=== PATIENT | female | born 1945 | race Caucasian/White ===

== ENCOUNTER 2017-06-07 12:31 | Inpatient (IN) | payer MEDICARE ==
[~2017-06-07] VITALS: Ht 162.6 cm; Wt 72.4 kg
--- NOTE | 2017-06-07 12:38 | ED.REPORT ---
HPI-Trauma Minor / Fall Date of Service Jun 07, 2017 ED Provider: Uday De Los Santos MD Patient is a 72 year old female with a history of hypertension who presents to the ED via EMS after a ground level fall complaining of left hip pain. She complains of pain with movement. The fall was a mechanical fall, she tripped and fell. Patient denies hitting her head, losing consciousness, fever or other symptoms. Nursing Notes Stated Complaint: LEFT HIP PAIN Chief Complaint: Extremity Trauma Nursing Notes Reviewed: Yes Allergies: Coded Allergies: No Known Allergies (Unverified , 06/07/17) General Time Seen by MD: 12:32 Chief Complaint Fall Hx Obtained From: Patient Arrived By: Ambulance Onset Occurred: Just prior to arrival Symptom Duration: Since onset Caused by: Fall on ground Location: Hip left Quality: Painful Severity: Current: Moderate Similar Sx Previous: No Past Medical History Past Medical History Reports: Hyperlipidemia, Hypertension Smoking History Never Smoker Social History Alcohol Use: Denies alcohol use Drug Use: Denies drug use Other Social History: Good social support Ambulatory Status Independent Review of Systems Constitutional: Denies: Chills, Fever Respiratory: Denies: Non-productive cough, Shortness of breath Musculoskeletal: Reports: Extremity pain, Denies: Back pain, Neck pain Skin: Denies Itching, Denies Rash Neurologic: Reports: Problem walking, Denies: Change LOC, Headache, Numbness, Weakness Complete sys rev & neg: except as marked. Cardiovascular: Denies: Chest pain Physical Exam Initial Vital Signs Vital Signs (First) Date Time Temp Pulse Resp B/P Pulse Ox O2 Delivery O2 Flow Rate FiO2 06/07/17 12:43 35.0 86 18 123/60 97 Initial VS: Reviewed General/Constitutional: Awake, Alert Neck: Atraumatic, Supple, Full range of motion Head / Eyes: Atraumatic, Normocephalic, PERRL, EOMI Respiratory / Chest: Atraumatic, Breath sounds NL, Breath sounds = bilat, No respiratory distress Cardiovascular: Heart rate NL, Regular rhythm, Heart sounds NL Upper Extremity / MS: Atraumatic, Full range of motion Lower Extremity / Pelvis / MS: Neurologic intact, Vascular intact left leg externally rotated and shortened tender over the greater trochanter Skin: Atraumatic, Color NL, No rash, Warm, Dry Neurologic: Oriented X3, Speech NL Psychiatric: Affect NL, Mood NL Interpretation & Diagnostics Lab Results Interpretation Result Diagram: 06/07/17 1230 06/07/17 1230 Test 06/07/17 12:30 White Blood Count 7.1th/mm3 (3.8-10.1) Red Blood Count 4.29mil/mm3 (3.90-5.20) Hemoglobin 13.3g/dL (12.0-15.6) Hematocrit 40.3% (35.0-46.0) Mean Corpuscular Volume 93.9fL (81-100) Mean Corpuscular Hemoglobin 31.0pg (27.0-35.0) Mean Corpuscular Hemoglobin Concent 33.0% (32.0-37.0) Red Cell Distribution Width 12.6% (12.3-15.4) Platelet Count 301bil/L (150-400) Neutrophils (%) (Auto) 52.2% (40-74) Lymphocytes (%) (Auto) 37.1% (14-46) Monocytes (%) (Auto) 8.6% (4-12) Eosinophils (%) (Auto) 1.1% (0-5) Basophils (%) (Auto) 0.7% (0-3) Sodium Level 139mEq/L (134-144) Potassium Level 4.5mEq/L (3.5-5.2) Chloride Level 100mEq/L (97-108) Carbon Dioxide Level 22mmol/L (18-29) Blood Urea Nitrogen 16mg/dL (8-27) Creatinine 0.62mg/dL (0.57-1.00) Estimat Glomerular Filtration Rate 135mL/min (>59) Glucose Level 106mg/dL (60-99) Calcium Level 9.1mg/dL (8.5-10.1) Total Bilirubin 0.5mg/dL (0.0-1.2) Aspartate Amino Transf (AST/SGOT) 24U/L (0-50) Alanine Aminotransferase (ALT/SGPT) 15U/L (0-32) Alkaline Phosphatase 83U/L (25-165) Total Protein 6.7g/dL (6.4-8.4) Albumin 4.2g/dL (3.4-5.0) ECG Interpretation Time: 13:30 Interpreted by: ED physician Normal ECG Interpretation: Normal rate (81), Normal sinus rhythm X-Ray Chest Interpretation Chest Xray Interpretation: IMPRESSION: 1. No acute cardiopulmonary disease. Dictated by: Tom Balderas M.D. on 06/07/2017 at 13:51 Approved by: Tom Balderas M.D. on 06/07/2017 at 13:51 Interpretation / Wet Read by: Interpret - Radiologist X-Ray Interpretation Xray Interpretation: IMPRESSION: 1. Mildly impacted left femoral neck fracture. Dictated by: Tom Balderas M.D. on 06/07/2017 at 13:50 Approved by: Tom Balderas M.D. on 06/07/2017 at 13:51 X-Ray Ordered: Hip left Interpretation / Wet Read by: Interpret - Radiologist Re-Eval/Medical Decision Re-Evaluation/Progress : Time of Eval: 13:42 Re-Evaluation/Progress Note: Discussed X-ray results and plan for admit. Patient understands and agrees to plan. All questions were addressed. Consultation #1: Referral / Consult Name: Vikas Sánchez MD Consulted With: Surgeon Call Returned at: 13:34 Farm Service Adviser: Will see patient, Agrees with eval, Agrees with plan Consultation #2: Referral / Consult Name: Edwin Pham MD Consulted With: Hospitalist Call Returned at: 14:09 Farm Service Adviser: Agrees with eval, Agrees with plan, Accepts admit Counseled Regarding: Diagnosis, Lab results, Need for admission Discharge & Departure Impression: Primary Impression: Fracture of femoral neck, left Encounter type: initial encounter Fracture type: closed Qualified Code: S72.002A - Fracture of unspecified part of neck of left femur, initial encounter for closed fracture Disposition: ADMITTED TO HOSPITAL Discharge Condition All VS Reviewed: Yes Condition: Stable Scribe Attestation Portions of this note were transcribed by Anais Cole. I, Dr. De Los Santos personally performed the history, physical exam and medical decision-making; I reviewed and confirmed the accuracy of the information in the transcribed note. Signed by: Susan Moyer, 06/07/17 Uday De Los Santos MD Jun 07, 2017 12:38 Judit Cole Jun 07, 2017 12:43
[2017-06-07] MEDS ORDERED: HYDROmorphone 0.5 mg/0.5 mL iSecure Syringe IVPUSH PRN (12:40)
[2017-06-07] MEDS ORDERED: Ondansetron 2 mg/mL 2 mL Inj IV PRN (12:40)
[2017-06-07 12:43] VITALS: BP 123/60; PULSE 86; RESP 18; O2SAT 97
[2017-06-07 13:01] LABS: BASOPHILS % (AUTO) 0.7 % (0-3); EOSINOPHILS % (AUTO) 1.1 % (0-5); MONOCYTES % (AUTO) 8.6 % (4-12); Mean Corpuscular Volume 93.9 fL (81-100); NEUTROPHILS % (AUTO) 52.2 % (40-74); Platelet Count 301 bil/L (150-400)
--- NOTE | 2017-06-07 13:52 | DRSVH ---
PROCEDURE: X-RAY CHEST ONE VIEW, PORTABLE ([id number]) INDICATIONS: trauma TECHNIQUE: One view of the chest was acquired. COMPARISON: None. FINDINGS: Surgical changes and devices: None. Lungs and pleura: No pleural effusions or pneumothorax. Lungs are clear. Mediastinum: Mediastinal contours appear normal. Heart size is normal. Bones and chest wall: No suspicious bony lesions. Overlying soft tissues appear unremarkable. IMPRESSION: 1. No acute cardiopulmonary disease. Dictated by: Tom Balderas M.D. on 06/07/2017 at 13:51 Approved by: Tom Balderas M.D. on 06/07/2017 at 13:51
--- NOTE | 2017-06-07 13:52 | DRSVH ---
PROCEDURE: X-RAY PELVIS W/LAT HIP (LT) ([id number]) INDICATIONS: trauma TECHNIQUE: AP pelvis with lateral view of the left hip. COMPARISON: None. FINDINGS: Bones: There is a subcapital fracture of the left femoral neck with mild impaction. Pelvic ring gunnar ears intact. No suspicious bony lesions. Soft tissues: The visualized bowel gas pattern is normal. No suspicious soft tissue calcifications. IMPRESSION: 1. Mildly impacted left femoral neck fracture. Dictated by: Tom Balderas M.D. on 06/07/2017 at 13:50 Approved by: Tom Balderas M.D. on 06/07/2017 at 13:51
[2017-06-07 14:18] VITALS: BP 145/119; PULSE 82; RESP 14; O2SAT 100
[2017-06-07] MEDS ORDERED: Alum-Mag Hydrox-Simeth 30 mL Suspension PO PRN (14:40)
[2017-06-07] MEDS ORDERED: Ondansetron 2 mg/mL 2 mL Inj IVPUSH PRN (14:40)
[2017-06-07 14:59] VITALS: BP 145/119; PULSE 82; RESP 14; O2SAT 100
--- NOTE | 2017-06-07 15:03 | DRSVH ---
PROCEDURE: X-RAY LEFT FEMUR, TWO VIEWS ([id number]) INDICATIONS: fracture TECHNIQUE: 3 views of the femur were acquired. COMPARISON: [facility], CR, XR PELVIS W LATERAL HIP LT, 06/07/2017, 12:57. FINDINGS: Bones: A left femoral neck fracture is redemonstrated with mild impaction. No definite distal fract ure of the femur with evaluation limited due to obliquity of the projection. Soft tissues: No suspicious soft tissue calcifications or masses. IMPRESSION: 1. Mildly impacted left femoral neck fracture redemonstrated. 2. Limited evaluation of the distal femur demonstrates no definite fracture. Dictated by: Tom Balderas M.D. on 06/07/2017 at 15:00 Approved by: Tom Balderas M.D. on 06/07/2017 at 15:02
--- NOTE | 2017-06-07 15:26 | NUR ---
New Admit patient is alert and oriented X3. Able to make needs known. patient arrived to unit approx 1510. hospitalist aware. c/o pain 10/10 to left hip, PRN dilaudid given as ordered with pain improvement to 7. Current diet heart healthy but NPO after mid night. Surgery tomorrow per ER report/ Dr. Sánchez. BP 174/93, pulse 89. Hospitalist aware .
[2017-06-07 15:51] VITALS: BP 174/93; PULSE 85; RESP 20; O2SAT 98
--- NOTE | 2017-06-07 16:29 | CONS ---
[address] [address] CONSULTATION REPORT PATIENT: CHRISTIAN MCHUGH : 1945 MR#: [id number] ADMIT: 06/07/2017 JOB ID: [id number] DATE OF SERVICE: 06/07/2017 CHIEF COMPLAINT: An otherwise active 72-year-old female who tripped on a small step, sustaining a left femoral neck fracture. It was a ground level fall. The patient denies any loss of consciousness, any dizziness or blurring of vision prior to the fall. PAST MEDICAL HISTORY: Pertinent for hypertension, hyperlipidemia, and gastric reflux. SOCIAL HISTORY: The patient lives with her . She does not smoke or drink. PRIOR SURGERY: She has had two C-sections and a cyst removed from her coccygeal region. REVIEW OF SYSTEMS: HEENT: No blurring of vision. No acute change in hearing. Respiratory: No shortness of breath. Cardiovascular: No chest pain. GI: No nausea, vomiting. : No dysuria. Musculoskeletal: Pain in the left hip. Neurologic: No headache or dizziness. No paresthesias or dysesthesias. No lateralizing neurologic findings. Hematologic: No easy bleeding or bruising. Psychiatric: No anxiety or depression. Medications not listed, but the patient is treated for her hypertension. She also takes something for gastric reflux and hyperlipidemia. PHYSICAL EXAMINATION: 160 cm, 70.45 kg female. Pulse 86, respiration 18, blood pressure 123/60, pulse of 97. A 72-year-old female, alert and oriented. She is lying on the stretcher. Left leg is shortened and externally rotated. She has pain in the left hip. Peripheral pulses are full. Motor and sensory testing intact in the left foot. Skin is intact. Calf is soft. LABORATORY TESTING: White count 7100, hemoglobin 13.3, hematocrit 40.3, platelet count 301,000. Chemistry panel: Sodium 139, potassium 4.5, chloride 100, CO2 22, BUN 16, creatinine 0.62. Random glucose 106. Liver function tests within normal limits. IMAGING PROCEDURE: Chest x-ray was performed. No acute infiltrates. X-rays of the femur are also performed. No abnormal bony pathology in the femur. She does have some degenerative changes at the knee and has had history of some arthritic knee problems. IMPRESSION: Displaced left femoral neck fracture. PLAN: I have discussed treatment options with the patient. The patient is relatively young at 72 and active and does not normally use appliances to ambulate. I believe she would be best served with a total hip replacement rather than a bipolar hemiarthroplasty. I have discussed the case with Dr. Marky Carranza. We are both in agreement that the patient would be better served with a total hip replacement rather than a hemiarthroplasty. I do not perform total hips but only do hemiarthroplasties. I have therefore opted to refer the patient to Dr. Carranza and he can discuss with the patient the surgery involved. I have also given the patient some information as to what to anticipate with the surgery and postoperatively. The patient will be kept n.p.o. after midnight. Type and screen will be sent to the blood bank for blood to be available if needed. EKG has already been performed. The patient and her were in agreement with the treatment plan. CPT code: 11595-08. I was asked to see the patient for orthopedic consultation by Dr. Uday De Los Santos for a left femoral neck fracture.
--- NOTE | 2017-06-07 16:34 | PCM.HPMED ---
Subjective Date of Service Jun 07, 2017 Primary Provider: Admitting Physician: Edwin Pham MD Primary Care Physician: [place] Attending Physician: Edwin Pham MD Admit Status: From the Emergency Department, Admit to Red Team Chief Complaint: Left Hip pain after fall History of Present Illness: 72 yo pleasant female h/o of GERD, HTN, HLD, Arthritis presented to ED after ground level fall with pain. Pt says she tripped after missing a step and fell. Her tried to help her up but was too painful. Called EMS to transport her to ED. Pt denies lightheadedness before fall. Pain is 10/10. Denies hitting her head. No LOC, loss of urine. Denies fever/chills. Denies CP. Not on any blood thinners. Review of Systems: 12 point ROS negative except that in Hpi Allergies Coded Allergies: No Known Allergies (Unverified , 06/07/17) Home Medications Med List unavailable and patient can't recall. See Med-Rec in EMR when updated. PMH GERD, HTN, HLD, Arthritis Surgical History Denies past surgeries. Family History Says has some cardiac history related to EKG's but can't recall names. Social History Hx Alcohol Use: No Hx Substance Use: No Hx Tobacco Use: No Smoking Status: Never Smoker Exam Vital Signs Vital Sign - Last Date Time Temp Pulse Resp B/P Pulse Ox O2 Delivery O2 Flow Rate FiO2 06/07/17 15:51 36.6 85 20 174/93 98 Room Air Exam Gen: NAD, AOx4, HEENT: NCAT, PERRLA, EOMI, MMM, sclera anicteric. Neck: Soft, supple, no thyromegaly/JVD/LAD. Resp: CTAB, no R/R/W. CV: S1 S2, RRR, No M/R/G Abd: Soft, (+) BS, NT/ND, no guarding/rebound/organomegaly. Lower Extremity / Pelvis / MS: Neurologic intact, Vascular intact. left leg externally rotated and shortened tender over the greater trochanter Skin: warm/dry/intact Neuro/Psych: Cooperative, appr mood/affect. CN II-XII grossly intact. No focal deficits. Lab and Diagnostics Result Diagram: 06/07/17 1230 06/07/17 1230 X-Rays, CTs and MRIs 06/07/17- X-RAY LEFT FEMUR, TWO VIEWS IMPRESSION: 1. Mildly impacted left femoral neck fracture redemonstrated. 2. Limited evaluation of the distal femur demonstrates no definite fracture. Assessment & Plan 72 yo pleasant female h/o of GERD, HTN, HLD presented to ED after ground level fall with pain in Left Hip found on X-Ray to have mildly impacted left femoral neck fracture Mildly impacted left femoral neck fracture, POA, active- seen on X-Ray. Pain- IV Dilaudid, Tylenol. . [place] following- Dr. Sánchez consulted. Rec is for total hip replacement which will be performed by Dr. Carranza instead. NPO past MN for AM OR Total Hip Replacement Get PT eval post-op Ground Level Fall- poa, active. Appears mechanical fall. No preceding syncopal symptoms. HTN- chronic, active- c/w hm meds. Chronic Issues- GERD- chronic, stable. - Maalox. HLD - chronic, stable Arthritis- chronic, stable. Code- Full Acetaminophen for mild pain when necessary. Bowel regimen Senna and MiraLAX scheduled and PRN. Status- Patient is admitted under inpatient status expected length of stay greater than 2 midnights due to severity of presenting symptoms, risk of adverse events, and complexity of treatment plan. VTE Mechanical Devices: Intermittant Pneumatic CD Resuscitation Status: CPR: Attempt Resuscitation Edwin Pham MD Jun 07, 2017 16:34
[2017-06-07] MEDS ORDERED: ATOR20TA65 PO (17:35)
[2017-06-07] MEDS ORDERED: LISI-571 PO (17:35)
[2017-06-07] MEDS ORDERED: RANI150T11 PO (17:35)
[2017-06-07] MEDS: 0.9% Sodium Chloride 1,000 ML IV SCH (18:23)
--- NOTE | 2017-06-07 19:10 | NUR ---
Elevated systolic One time Lisinoprill given as ordered for elevated BP. Report given to night nurse. patient has been asymptomatic with no signs of cardiac distress.
[2017-06-07 19:25] VITALS: BP 166/81; PULSE 80; RESP 17; O2SAT 97
[2017-06-07 20:29] LABS: APPEARANCE,URINE HAZY (CLEAR,HAZY); COLOR,URINE YELLOW (YELLOW); OCCULT BLOOD,URINE TRACE (NEGATIVE); PH,URINE 7.5 (5.0-8.0); UROBILINOGEN,URINE NORMAL (NORMAL)
[2017-06-08] VITALS (8 sets, daily range): BP systolic 135–164; BP diastolic 65–82; PULSE 71–84; RESP 14–18; O2SAT 93–100
--- NOTE | 2017-06-08 03:20 | NUR ---
Pain/ Nausea Pt. became nauseous after dinner, and had some emesis output. Pt. denied need for antiemetic. No nausea or emesis noted since. Pt. reports pain, but denies need for pain medication. Ice applied to site of fracture. Will continue to monitor.
[2017-06-08] MEDS: HYDROmorphone 0.5 mg/0.5 mL iSecure Syringe IVPUSH PRN ×2 (04:14→08:20)
[2017-06-08] MEDS: 0.9% Sodium Chloride 1,000 ML IV SCH ×2 (06:12→20:17)
[2017-06-08 06:41] LABS: BASOPHILS % (AUTO) 0.1 % (0-3); EOSINOPHILS % (AUTO) 0.1 % (0-5); MONOCYTES % (AUTO) 9.1 % (4-12); Mean Corpuscular Hemoglobin 31.1 pg (27.0-35.0); Mean Corpuscular Volume 94.4 fL (81-100); NEUTROPHILS % (AUTO) 78.6 % (40-74); Platelet Count 267 bil/L (150-400)
[2017-06-08 07:04] LABS: INR 0.92 ratio
[2017-06-08] MEDS ORDERED: MetoCLOpramide 5 mg/mL 2 mL Inj ONE (09:35)
[2017-06-08] MEDS ORDERED: MeTOProlol 1 mg/mL 5 mL Inj ONE (09:35)
[2017-06-08] MEDS ORDERED: Dexamethasone 4 mg/mL Inj ONE (09:35)
[2017-06-08] MEDS ORDERED: Rocuronium 10 mg/mL 5 mL Inj ONE (09:35)
[2017-06-08] MEDS ORDERED: HYDROmorphone 1 mg/mL Inj ONE (09:35)
[2017-06-08] MEDS ORDERED: Propofol 10,000 mCg/mL 20 mL Inj ONE (09:35)
[2017-06-08] MEDS ORDERED: Ondansetron 2 mg/mL 2 mL Inj ONE (09:35)
[2017-06-08] MEDS ORDERED: Vancomycin Inj 1,000 MG in IV Premix 1 EACH IV ONE (13:00)
[2017-06-08] MEDS ORDERED: CeFAZolin 2 Gm/50 mL D5W IV Premix IV ONE (13:00)
--- NOTE | 2017-06-08 14:03 | NUR ---
Pain/Nausea Patient reported pain this AM and requested pain medication to decrease it. When administering IVP dilaudid slowly the patient became nauseous but this feeling quickly went away without vomiting. Later this shift, the patient became nauseous and has one episode of emesis reported to be clear and "just water" by the patient. Denies nausea at this time. Continuing to monitor patient's pain level and nausea.
--- NOTE | 2017-06-08 15:00 | PCM.PNMED ---
Subjective Date of Service Jun 08, 2017 Subjective Pt going for Hip replacement today. Exam Vital Signs Vital Sign - Last Date Time Temp Pulse Resp B/P Pulse Ox O2 Delivery O2 Flow Rate FiO2 06/08/17 13:18 37.7 83 17 148/65 94 Room Air Intake and Output 06/07/17 06/07/17 06/08/17 Cumulative From/Thru 15:00 23:00 07:00 06/07/17 12:43 - 06/08/17 06:28 Intake Total 200 ml 1275 ml 1475 ml Output Total 141 ml 1000 ml 1141 ml Balance 59 ml 275 ml 334 ml Intake Oral 200 ml 400 ml 600 ml IV Total 0 ml 875 ml 875 ml Output Urine Total 1 ml 700 ml 701 ml Emesis 140 ml 300 ml 440 ml Exam Gen: NAD, AOx4, HEENT: NCAT, PERRLA, EOMI, MMM, sclera anicteric. Neck: Soft, supple, no thyromegaly/JVD/LAD. Resp: CTAB, no R/R/W. CV: S1 S2, RRR, No M/R/G Abd: Soft, (+) BS, NT/ND, no guarding/rebound/organomegaly. Lower Extremity / Pelvis / MS: Neurologic intact, Vascular intact. left leg externally rotated and shortened tender over the greater trochanter Skin: warm/dry/intact Neuro/Psych: Cooperative, appr mood/affect. CN II-XII grossly intact. No focal deficits. IVs and Medications Medications Reviewed: Medications were reviewed in detail Lab and Diagnostics Result Diagram: 06/08/1760406/08/17604 X-Rays, CTs and MRIs 06/07/17- X-RAY LEFT FEMUR, TWO VIEWS IMPRESSION: 1. Mildly impacted left femoral neck fracture redemonstrated. 2. Limited evaluation of the distal femur demonstrates no definite fracture. Assessment & Plan 72 yo pleasant female h/o of GERD, HTN, HLD presented to ED after ground level fall with pain in Left Hip found on X-Ray to have mildly impacted left femoral neck fracture. Mildly impacted left femoral neck fracture, POA, active- seen on X-Ray. Pain- IV Dilaudid, Tylenol. . [place] following- Dr. Sánchez consulted. Rec is for total hip replacement which will be performed by Dr. Carranza instead. NPO past MN for AM OR Total Hip Replacement, Surgeon Dr. Carranza. Get PT eval post-op F/u Surgery Recs. Ground Level Fall- poa, active. Appears mechanical fall. No preceding syncopal symptoms. See plan above. HTN- chronic, active- Pt home dose of Lisinopril is 5mg daily, increased to 10mg daily. If hypotensive can go back to hm dose. Chronic Issues- GERD- chronic, stable. - Maalox. HLD - chronic, stable Arthritis- chronic, stable. Code- Full Acetaminophen for mild pain when necessary. Bowel regimen Senna and MiraLAX scheduled and PRN. Status- Patient is admitted under inpatient status expected length of stay greater than 2 midnights due to severity of presenting symptoms, risk of adverse events, and complexity of treatment plan. VTE Mechanical Devices: Intermittant Pneumatic CD Resuscitation Status: CPR: Attempt Resuscitation Edwin Pham MD Jun 08, 2017 15:00
--- NOTE | 2017-06-08 15:51 | NUR ---
To OR Patient to OR. Saline locked. Pre-op antibiotics in chart and accompanied patient to OR. Report given to RN [employer].
[2017-06-08] MEDS ORDERED: Lactated Ringer's 1,000 ML IV ONE (16:05)
[2017-06-08] MEDS ORDERED: Lactated Ringer's 500 ML IV PRN (16:08)
[2017-06-08] MEDS ORDERED: Lactated Ringer's 1,000 ML IV SCH (16:08)
--- NOTE | 2017-06-08 16:08 | PCM.HPANE ---
Patient Data Surgeon Admitting Provider:Edwin Pham MD Attending Provider:Edwin Pham MD Primary Care Physician:La Crocker Other Provider: Reason for Visit Lt Femoral Neck Fx Ht/WT & BMI Height (Feet): 5 Height (Inches): 4.00 Weight (Kilograms): 72.400 Body Mass Index 27.25 Allergies Coded Allergies: latex (Verified Allergy, Unknown, 06/07/17) Past Anesthesia History Anesthesia History: Denies:: Anesthesia Reactions Diabetes History Hx Diabetes?: No MRSA MRSA: No Medications Hypertension Medication: Yes Home Meds Incl Beta Ivet: No Reported Medications Atorvastatin Calcium 20 Mg [id number] Mg PO HS #45 06/07/17 Lisinopril 5 Mg Tablet5 Mg PO DAILY #90 06/07/17 Ranitidine (Zantac)150 Mg [id number] Mg PO DAILY #90 06/07/17 History History of ENT Problems?: Yes HEENT History: Positive for:: Cataracts (Left cataract surgery, surg scheduled for right eye) Denture Type: Full- Upper Full- Lower Teeth Condition: Within Normal Limits Hx of Heart Problems?: Yes Cardiovascular History: Positive for:: Hypertension Denies:: AICD Abdominal Aortic Aneurism Atrial Fibrillation Cardiac Surgery Chest Pain Congestive Heart Failure Coronary Artery Disease Edema Heart Murmur Irregular Heartbeat Pacemaker Peripheral Vascular Rheumatic Fever Thrombophlebitis Valvular Heart Disease Hx of Respiratory Problem?: No Respiratory History: Denies:: Asthma COPD Chest Surgery Cough Dyspnea Emphysema Hemoptysis Oxygen Administration Pneumonia Pulmonary Embolism Tuberculosis Use of C-PAP Machine Use of Inhalers / NEBS Hx Neurologic Problems?: No Hx of GI Problems?: Yes Hx of Problems?: No Female Hx: Denies:: Currently Endometriosis Pelvic Inflammatory Problems with Breasts? Hx Musculoskeletal Problems?: Yes Hx of Psycho/Social Problems?: No Hx Surgeries?: Yes (Cataract surgery, cyst removal from tailbone) Hx Any Other Health Problems?: Yes History Blood Transfusions: Positive for:: Accept Blood Products? Blood Transfusions Denies:: Blood Transfuse Reaction Hx Alcohol Use: NoHx Substance Use: No Smoking Status: Never Smoker Have You Smoked inLast 12 mo: No Stop/Bang Treated for Sleep Apnea?: No Do You Have a CPAP Machine?: No S-Snoring: Do You Snore Loudly: Yes T-Tired: feel tired, fatigued: Yes O-Obsered: Observed not breath: No P-Blood Pressure: treated: Yes B- Body Mass Index > 35 kg/m2: No A- Age over 50: No N- Neck Large Circumference: No G- Gender Male: No DARLING Total Score: 3 DARLING Risk Assessment: Low Risk, <3 Yes Risk Assessment Category Category 1A: Patient has history of documented sleep apnea, and HAS NOT received any narcotic, sedative or anesthesia administration during this stay. Category 1B: Patient has history of documented sleep apnea, and HAS received any narcotic , sedative or anesthesia administration during this stay Category 2: Patient has SUSPECTED Obstructive Sleep Apnea, and HAS received any narcotic , sedative or anesthesia administration during this stay. Category 3: Patient has SUSPECTED Obstructive Sleep Apnea and HAS NOT received narcotic, sedative or anesthesia administration during this stay. Category 4: Outpatient in Procedural Areas with known sleep apnea or who screen positive for High Risk via the STOP/BANG questionnaire. Exam Exam Vital Signs Vital Signs Date Time Temp Pulse Resp B/P Pulse Ox O2 Delivery O2 Flow Rate FiO2 06/08/17 13:18 37.7 83 17 148/65 94 Room Air 06/08/17 08:42 36.7 73 16 135/67 96 Room Air General Appearance: Oriented X3 HEENT/AIRWAY: MP 2 Lungs: Normal Air Movement Heart: Regular Rate/Rhythm Meds/Labs/Diagnostics Admission Meds Current Medications Sodium Chloride (Normal Saline) 1,000 ml @ 75 mls/hr [id number] IV Last administered on 06/08/17 06:12; Start 06/07/17 at 17:25 Atorvastatin Calcium (Lipitor) 10 mg HS PO Last administered on 06/07/17 20:44 ; Start 06/07/17 at 21:00 Lisinopril (Zestril) 5 mg ONCE ONCE PO Last administered on 06/07/17 18:07; Start 06/07/17 at 17:55; Stop 06/07/17 at 18:01; Status DC Labs Test 06/07/17 14:35 06/07/17 20:04 06/08/17 06:05 Hold Purple Top Tube Received (Received) Hold Blue Top Tube Received (Received) Hold Red Top Tube Received (Received) Hold Centuria Top Tube Received (Received) Hold Cox Top Tube Received (Received) Urine Color Yellow (YELLOW) Urine Appearance Hazy (CLEAR,HAZY) Urine pH 7.5 (5.0-8.0) Urine Specific [place] 1.015 (1.003-1.035) Urine Protein Negativemg/dL (NEG,TRACE) Urine Glucose (UA) Negativemg/dL (NEGATIVE) Urine Ketones 40mg/dL (NEGATIVE) Urine Occult Blood Trace (NEGATIVE) Urine Nitrite Negative (NEGATIVE) Urine Bilirubin Negative (NEGATIVE) Urine Urobilinogen Normalmg/dL (NORMAL) Urine Leukocyte Esterase Negative (NEGATIVE) Urine RBC 3-10/hpf (0-2) Urine WBC 0-5/hpf (0-5) Urine Epithelial Cells Few/hpf (NONE-MOD) Urine Crystals None seen (NONE SEEN) Urine Bacteria Few/hpf (NONE-FEW) Urine Hyaline Casts None/lpf (NONE) Urine Granular Casts None seen (NONE SEEN) Urine Waxy Casts None seen (NONE SEEN) Urine Red Blood Cell Casts None seen (NONE SEEN) Urine White Blood Cell Casts None seen (NONE SEEN) Urine Mucus None seen (None Seen) Urine Trichomonas None seen (NONE SEEN) Urine Yeast None (NONE SEEN) Urinalysis Comment None Urine Culture Reflexed Not indicated White Blood Count 9.7th/mm3 (3.8-10.1) Red Blood Count 4.28mil/mm3 (3.90-5.20) Hemoglobin 13.3g/dL (12.0-15.6) Hematocrit 40.4% (35.0-46.0) Mean Corpuscular Volume 94.4fL (81-100) Mean Corpuscular Hemoglobin 31.1pg (27.0-35.0) Mean Corpuscular Hemoglobin Concent 32.9% (32.0-37.0) Red Cell Distribution Width 12.6% (12.3-15.4) Platelet Count 267bil/L (150-400) Neutrophils (%) (Auto) 78.6% (40-74) Lymphocytes (%) (Auto) 12.0% (14-46) Monocytes (%) (Auto) 9.1% (4-12) Eosinophils (%) (Auto) 0.1% (0-5) Basophils (%) (Auto) 0.1% (0-3) Prothrombin Time 9.8sec (8.1-12.5) Prothromb Time International Ratio 0.92ratio Sodium Level 136mEq/L (134-144) Potassium Level 3.9mEq/L (3.5-5.2) Chloride Level 100mEq/L (97-108) Carbon Dioxide Level 23mmol/L (18-29) Blood Urea Nitrogen 10mg/dL (8-27) Creatinine 0.44mg/dL (0.57-1.00) Estimat Glomerular Filtration Rate 200mL/min (>59) Glucose Level 109mg/dL (60-99) Calcium Level 8.8mg/dL (8.5-10.1) Total Bilirubin 0.6mg/dL (0.0-1.2) Aspartate Amino Transf (AST/SGOT) 20U/L (0-50) Alanine Aminotransferase (ALT/SGPT) 13U/L (0-32) Alkaline Phosphatase 84U/L (25-165) Total Protein 5.7g/dL (6.4-8.4) Albumin 3.7g/dL (3.4-5.0) Plan Impression Patient chart reviewed, patient interviewed and anesthestic plan with risks, benefits, and alternatives discussed, and informed consent obtained. ASA Physical Status: ASA2 Mod Systemic Disease Anesthetic Plan: GA Bene/Risks/Altern/Consents: Yes HP Complete Prior to Induction: Yes Magdiel Pastrana MD Jun 08, 2017 16:08
[2017-06-08] MEDS ORDERED: EPHEDrine Sulfate 50 mg/mL Inj IVPUSH PRN (16:10)
[2017-06-08] MEDS ORDERED: Phenylephrine 10,000 mCg/mL Inj IVPUSH PRN (16:10)
[2017-06-08] MEDS ORDERED: Ondansetron 2 mg/mL 2 mL Inj IVPUSH PRN ×2 (16:10→19:00)
[2017-06-08] MEDS ORDERED: Dexamethasone 4 mg/mL Inj IVPUSH PRN (16:10)
[2017-06-08] MEDS ORDERED: HYDROmorphone 1 mg/mL Inj IVPUSH PRN (16:10)
[2017-06-08] MEDS ORDERED: fentaNYL-PF 50 mCg/mL 2 mL Inj IVPUSH PRN (16:10)
[2017-06-08] MEDS ORDERED: MetoCLOpramide 5 mg/mL 2 mL Inj IVPUSH PRN (16:10)
[2017-06-08] MEDS ORDERED: Bupivacaine Liposome 1.3% 20 mL Inj ONE (16:35)
[2017-06-08] MEDS ORDERED: Bupivacaine-MPF 0.25% 30 mL Inj INFILTRATE ONE (17:25)
[2017-06-08] MEDS ORDERED: 0.9% Sodium Chloride 10 mL Inj INFILTRATE ONE (17:25)
[2017-06-08] MEDS ORDERED: hydrOXYzine Pamoate 25 mg Capsule PO PRN (19:00)
[2017-06-08] MEDS ORDERED: Ketorolac 15 mg/mL Inj IVPUSH PRN (19:00)
[2017-06-08] MEDS ORDERED: Magnesium Hydroxide 10 mL Oral Concentration PO PRN (19:00)
[2017-06-08] MEDS ORDERED: diphenhydrAMINE 25 mg Capsule PO PRN (19:00)
[2017-06-08] MEDS ORDERED: Polyethylene Glycol (PEG) 17 Gm Powder PO PRN (19:00)
[2017-06-08] MEDS ORDERED: HYDROmorphone 0.5 mg/0.5 mL iSecure Syringe IVPUSH PRN (19:15)
--- NOTE | 2017-06-08 19:19 | OP ---
[address] [address] OPERATIVE REPORT PATIENT: CHRISTIAN MCHUGH : 1945 MR#: [id number] ADMIT: 06/07/2017 JOB ID: [id number] DATE OF SURGERY: 06/08/2017 SURGEON: Marky Carranza DO PREOPERATIVE DIAGNOSIS(ES): Left displaced femoral neck fracture. POSTOPERATIVE DIAGNOSIS(ES): Left displaced femoral neck fracture. PROCEDURE: Left total hip arthroplasty. ANESTHESIA: General. 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 She is quite active and normally walks without aids, and is independent at home and had some pre-existing hip pain and wished to proceed with a total hip arthroplasty as opposed to a hemiarthroplasty for treatment of this fracture after we discussed the treatment options. We discussed the risks, benefits, and possible complications of surgery. All questions were answered and she would like to proceed. A director medical surgical was required for the successful completion of the procedure. PROCEDURE IN DETAIL: The patient was brought to the operating room. She was given a preoperative antibiotic and 1 g TXA preoperatively. She was placed comfortably into the lateral decubitus position. The left hip was sterilely prepped and draped. An incision was made centered over the trochanter in line with the femur and dissection was carefully carried through subcutaneous tissue. Electrocautery was used for hemostasis. A split was then made in the iliotibial band and the Charnley retractor was then placed. A split was then made in the gluteus medius between the junction of the anterior 1/3 and posterior 2/3, and Hohmann retractors placed on either side of the femoral neck. A provisional femoral neck cut was made 1 fingerbreadth above the level of lesser trochanter and the femur was prepared beginning with a box osteotome. This was broached sequentially up to a size 3 which had excellent fit and fill. A calcar planer was used to smooth the top of the femur. Next, attention was directed towards the acetabulum. A corkscrew was used to remove the femoral head fragment and the acetabulum was then reamed sequentially up to a [address] a 50 DePuy Taft three-hole cup and impacted this into position. Care was taken to ensure the appropriate abduction and anteversion. This was further secured with a single superior dome screw, which had excellent fixation. I elected to place a 32/+4 liner and then trialed with a +1 head which fit quite nicely and therefore we placed a DePuy Tri-Lock 3 stem with a 1.5 ceramic head. Reduced the hip. It had excellent stability, equal leg length. Great range of motion. The wound was then irrigated and injected with a mixture of Exparel, saline and Marcaine, and then closed with #5 Ethibond to repair the capsule. The gluteus medius was repaired with #5 Ethibond and #1 Surgilon. The iliotibial band was repaired with #1 Surgilon and 0-Vicryl. The subcu was closed with 2-0 Vicryl and the skin was closed with a running subcuticular Stratafix suture. The patient tolerated the procedure well. BLOOD LOSS: 200 cc. POSTOPERATIVE PROTOCOL: Have the patient weightbear to tolerance. Use a walker for ambulation. Will use Lovenox for DVT prophylaxis. Follow up in the clinic with PA for wound check in two weeks and with myself in six weeks with x-rays.
--- NOTE | 2017-06-08 19:22 | PCM.ANEP1 ---
Post Anesthesia PACU Phase 1 Assessment Vital Signs Vital Signs Date Time Temp Pulse Resp B/P Pulse Ox O2 Delivery O2 Flow Rate FiO2 06/08/17 19:19 36.2 71 14 153/72 100 Simple Mask 6 06/08/17 13:18 37.7 83 17 148/65 94 Room Air Anesthetic Administered: GA Level of Alertness: Awake, talking Pain: No Pain Scale Score: 6 Nausea or Vomiting: No CV Function & Hydration Stable: Yes Airway Device: Lungs: Normal Air Movement PACU Phase 2 Assessment Patient Instructions Provided: N/A Magdiel Pastrana MD Jun 08, 2017 19:22
[2017-06-08 19:52] LABS: APPEARANCE,URINE HAZY (CLEAR,HAZY); COLOR,URINE YELLOW (YELLOW)
[2017-06-08 19:53] LABS: OCCULT BLOOD,URINE SMALL (NEGATIVE); UROBILINOGEN,URINE NORMAL (NORMAL)
--- NOTE | 2017-06-08 20:00 | DRSVH ---
PROCEDURE: X-RAY PELVIS W/LAT HIP (LT) ([id number]) INDICATIONS: post op TECHNIQUE: AP pelvis and lateral view of the left hip acquired. COMPARISON: [facility], , XR PELVIS W LATERAL HIP LT, 06/07/2017, 12:57. FINDINGS: Bones: Patient is status post left hip arthroplasty, with hardware components in expected positions. The hip joint appears congruent. The visualized bony structures appear intact. Soft tissues: No suspicious soft tissue densities. IMPRESSION: Left total hip arthroplasty. Dictated by: Samm Phelps M.D. on 06/08/2017 at 19:58 Approved by: Samm Phelps M.D. on 06/08/2017 at 19:58
[2017-06-08] MEDS: Senna-Docusate 8.6-50 mg Tablet PO SCH (22:23)
[2017-06-09] MEDS: Sodium Chloride LOK Flush 10 mL Syringe IV SCH ×3 (00:10→16:30)
[2017-06-09 00:12] VITALS: BP 137/69; PULSE 82; RESP 16; O2SAT 97
[2017-06-09] MEDS ORDERED: CeFAZolin Inj 2 GM in IV Premix 1 EACH IV SCH ×2 (00:30→01:00)
[2017-06-09] MEDS: CeFAZolin Inj 2 GM in IV Premix 1 EACH IV SCH ×2 (01:46→08:54)
[2017-06-09] MEDS: HYDROcodone-APAP 7.5-325 mg Tablet PO PRN ×4 (01:51→18:21)
--- NOTE | 2017-06-09 05:05 | NUR ---
PACU Pt returned from PACU at 1999. IV fluids infusing, Pt groggy but rousable and answers appropriately. Denies pain. Bulk dressing to left hip CDI. Wedge in place for hip precautions. Ice pack applied. +CMS. Care cotinues Addendum: 06/09/17 at 0642 by VIC SADLER RN IS instruction given and Pt using at bedside.
[2017-06-09 05:32] VITALS: BP 112/69; PULSE 83; RESP 17; O2SAT 94
[2017-06-09] MEDS: 0.9% Sodium Chloride 1,000 ML IV SCH ×2 (06:16→14:59)
[2017-06-09 06:20] LABS: BASOPHILS % (AUTO) 0 % (0-3); EOSINOPHILS % (AUTO) 0 % (0-5); MONOCYTES % (AUTO) 10.8 % (4-12); Mean Corpuscular Hemoglobin 30.5 pg (27.0-35.0); Mean Corpuscular Volume 94.6 fL (81-100); NEUTROPHILS % (AUTO) 77.5 % (40-74); Platelet Count 249 bil/L (150-400)
[2017-06-09] MEDS: Senna-Docusate 8.6-50 mg Tablet PO SCH ×2 (08:43→21:01)
[2017-06-09 08:47] VITALS: BP 140/75; PULSE 84; RESP 16; O2SAT 97
--- NOTE | 2017-06-09 09:07 | PCM.PNORTH ---
Subjective Date of Service: Jun 09, 2017 Visit Information: Reason for Visit Lt Femoral Neck Fx Surgery/Surgery Date left total hip arthroplasty 06/08/2017 Post-Op Day # 1 Date of Admission: Jun 07, 2017 at 14:41 Hospital Day # Subjective Patient complains of some discomfort on the muscles in the front of the hip. She denies any pain at the incision. Postop General: No Shortness of Breath, No Chest Pain, Good Appetite Pain Management: PO, IV Push Objective Exam Objective Patient is seen sitting up in bed Vital Signs and I/O Vital Sign - Last Date Time Temp Pulse Resp B/P Pulse Ox O2 Delivery O2 Flow Rate FiO2 06/09/17 08:47 84 16 140/75 97 Room Air 06/09/17 05:32 36.5 2.00 Intake and Output 06/08/17 06/08/17 06/09/17 Cumulative From/Thru 15:00 23:00 07:00 06/07/17 12:43 - 06/09/17 06:32 Intake Total 2060 ml 1316 ml 4851 ml Output Total 725 ml 850 ml 2716 ml Balance 1335 ml 466 ml 2135 ml Intake Oral 0 ml 320 ml 920 ml IV Total 2060 ml 996 ml 3931 ml Output Urine Total 525 ml 850 ml 2076 ml Emesis 440 ml Estimated Blood Loss 200 ml 200 ml # Bowel Movements 0 0 Lab & Micro Results Laboratory Tests Test 06/08/17 19:20 06/09/17 05:30 Urine Color Yellow (YELLOW) Urine Appearance Hazy (CLEAR,HAZY) Urine pH 6.0 (5.0-8.0) Urine Specific [place] 1.030 (1.003-1.035) Urine Protein Negativemg/dL (NEG,TRACE) Urine Glucose (UA) Negativemg/dL (NEGATIVE) Urine Ketones 80mg/dL (NEGATIVE) Urine Occult Blood Small (NEGATIVE) Urine Nitrite Negative (NEGATIVE) Urine Bilirubin Negative (NEGATIVE) Urine Urobilinogen Normalmg/dL (NORMAL) Urine Leukocyte Esterase Negative (NEGATIVE) Urine RBC 0-2/hpf (0-2) Urine WBC 0-5/hpf (0-5) Urine Epithelial Cells None/hpf (NONE-MOD) Urine Crystals None seen (NONE SEEN) Urine Bacteria Few/hpf (NONE-FEW) Urine Hyaline Casts None/lpf (NONE) Urine Granular Casts None seen (NONE SEEN) Urine Waxy Casts None seen (NONE SEEN) Urine Red Blood Cell Casts None seen (NONE SEEN) Urine White Blood Cell Casts None seen (NONE SEEN) Urine Mucus None seen (None Seen) Urine Trichomonas None seen (NONE SEEN) Urine Yeast None (NONE SEEN) Urinalysis Comment None Urine Culture Reflexed Not indicated White Blood Count 9.2th/mm3 (3.8-10.1) Red Blood Count 3.70mil/mm3 (3.90-5.20) Hemoglobin 11.3g/dL (12.0-15.6) Hematocrit 35.0% (35.0-46.0) Mean Corpuscular Volume 94.6fL (81-100) Mean Corpuscular Hemoglobin 30.5pg (27.0-35.0) Mean Corpuscular Hemoglobin Concent 32.3% (32.0-37.0) Red Cell Distribution Width 12.6% (12.3-15.4) Platelet Count 249bil/L (150-400) Neutrophils (%) (Auto) 77.5% (40-74) Lymphocytes (%) (Auto) 11.6% (14-46) Monocytes (%) (Auto) 10.8% (4-12) Eosinophils (%) (Auto) 0% (0-5) Basophils (%) (Auto) 0% (0-3) Sodium Level 138mEq/L (134-144) Potassium Level 4.1mEq/L (3.5-5.2) Chloride Level 101mEq/L (97-108) Carbon Dioxide Level 23mmol/L (18-29) Blood Urea Nitrogen 11mg/dL (8-27) Creatinine 0.71mg/dL (0.57-1.00) Estimat Glomerular Filtration Rate 115mL/min (>59) Glucose Level 127mg/dL (60-99) Calcium Level 8.2mg/dL (8.5-10.1) Result Diagram: 06/09/1752906/09/17529 General Appearance: Alert, Oriented X3, Cooperative, No Acute Distress Extremities: Distal Pulses Palpable, No Compartment Syndrom Noted, Thigh & Calf Soft/Nontender Postop Sensory Motor: Distal Motor Intact, Distal Sensation Intact, NVI Distally SURGICAL WOUND : Wound Location/Description Lateral left hip: Dressing is clean, dry and intact Activity: Activity per PT Catheters: Urethral 2 [address] [place] Assessment & Plan Impression POD #1 status post left total hip arthroplasty for fracture Problems: Plan Weightbearing: Weightbearing as tolerated with walker DVT prophylaxis: Lovenox 40 mg subcutaneous 3 weeks followed by aspirin 325 mg twice a day 3 weeks Physical therapy for transfers, progressive ambulation, therapeutic exercise Wound care: PA will change dressing on postop day 2 Discharge plan: Discharge home in 1-2 days. Follow-up plan: In 2 weeks at [facility] with PA for wound check and at [address] Carranza with x-rays Pain Management: [place] Dilaudid VTE Prophylaxis: Sub-Q Enoxaparin, SCDs Resuscitation Status: CPR: Attempt Resuscitation [place] IslandKaylynn Brandt PA-C Jun 09, 2017 09:07
--- NOTE | 2017-06-09 11:44 | NUR ---
Social Work: Initial Assessment/Readiness for D/C/Multidisciplinary Rounds D: EMR reviewed. Please see Initial Assessment linked to this note for more information. Pt is a 72 year old female admitted [place] with a readmit risk score of 1 for left femoral neck fracture per H&P. Pt's insurance is Medicare and AARP Supp. PCP is La Crocker MD. Pt discussed in multidisciplinary rounds, pt is POD 1. Pt is likely to discharge home as she is very strong and physically independent at baseline. PT to evaluate pt today. SW met with pt and at bedside to conduct initial assessment. Pt was alert and oriented x3. SW explained role and wrote phone number on white board. SW provided [facility] Discharge Planning Checklist and encouraged pt to contact SW for any discharge planning questions. Pt lives at home with her spouse in [place]. Pt is independent with all ADLs at baseline. Pt uses no DME at baseline and has no DME at home. Pt drives. Pt has no HH or SNF history. Pt has no LTC or VA benefits. Pt has no DPOA on file, SW requested copy of pt's DPOA. Pt agreeable. Discussed obtaining DME for pt. Pt's is going to look into loaner DME prior to obtaining walker through [facility]. SW encouraged pt/ to contact if they were not able to get a loaner walker. All agreeable. Pt is likely to d/c home with to transport via POV. SW will continue to follow. A: Pt who is independent at baseline and has the capacity for self-care. P: Pt's to look into loaner DME rather than [facility]. Pt anticipated to discharge home with to transport via POV vs. SNF as pt is in excellent physical shape. No SW needs identified, no MD orders received at this time. PT to evaluate pt. SW will continue to follow for needs until time of discharge. HOLLAND Yun Addendum: 06/09/17 at 1152 by JASPREET ALLEN SS Amended: Links added.
[2017-06-09 13:35] VITALS: BP 129/68; PULSE 91; RESP 16; O2SAT 97
--- NOTE | 2017-06-09 13:37 | PCM.PNMED ---
Subjective Date of Service Jun 09, 2017 Subjective Denies any new issues/complaints Exam Vital Signs Vital Sign - Last Date Time Temp Pulse Resp B/P Pulse Ox O2 Delivery O2 Flow Rate FiO2 06/09/17 08:47 84 16 140/75 97 Room Air 06/09/17 05:32 36.5 2.00 Intake and Output 06/08/17 06/08/17 06/09/17 Cumulative From/Thru 15:00 23:00 07:00 06/07/17 12:43 - 06/09/17 06:32 Intake Total 2060 ml 1316 ml 4851 ml Output Total 725 ml 850 ml 2716 ml Balance 1335 ml 466 ml 2135 ml Intake Oral 0 ml 320 ml 920 ml IV Total 2060 ml 996 ml 3931 ml Output Urine Total 525 ml 850 ml 2076 ml Emesis 440 ml Estimated Blood Loss 200 ml 200 ml # Bowel Movements 0 0 General: Alert, Cooperative, No Acute Distress Head: Normal Eyes: Scleral Anicteric Nose: Mucous Membr Moist/[place] Mouth: Mucous Membr Moist/[place] Neck: Supple Chest & Lungs: Chest Wall Normal, Clear to auscultation & percussion Cardiovascular: Regular Rate/Rhythm Abdomen: Non-tender, Non-distended, Normoactive bowel tones, Soft Extremities: No cyanosis/clubbing/edma bilat Neurological: Grossly Neurologically Intact, Normal Speech IVs and Medications Medications Reviewed: Medications were reviewed in detail Lab and Diagnostics Result Diagram: 06/09/1752906/09/17 0530 X-Rays, CTs and MRIs 06/07/17- X-RAY LEFT FEMUR, TWO VIEWS IMPRESSION: 1. Mildly impacted left femoral neck fracture redemonstrated. 2. Limited evaluation of the distal femur demonstrates no definite fracture. Assessment & Plan 72 yo [place] female h/o of GERD, HTN, HLD presented to ED after ground level fall with pain in Left Hip found on X-Ray to have mildly impacted left femoral neck fracture. # Acute Left displaced femoral neck fracture, present on admission - Post Left total hip arthroplasty on 06/08/17 - Appreciate Ortho consult. Will followup with recs - Continue with supportive care including IV Dilaudid prn for pain - Continue with post-op PT per ortho recs # Acute Ground Level Fall, present on admission. - Appears mechanical fall. No preceding syncopal symptoms. - Chronic hypertension. Stable. - Continue with home medications # Chronic GERD, stable. - Maalox prn # History of arthritis. Stable - Continue with supportive care Dispo: Likely SNF in 2-3 days VTE Prophylaxis: Sub-Q Enoxaparin, SCDs VTE Mechanical Devices: Intermittant Pneumatic CD Resuscitation Status: CPR: Attempt Resuscitation Ramin Winlker Jun 09, 2017 13:37
--- NOTE | 2017-06-09 19:29 | NUR ---
Pain/Bowels [place] 7.5/325mg q4h PRN effective for pain, requests q4h, no c/o pain at rest only w/ movement. Stool softeners/stimulators being admin w/ narcotics. No bm during shift today.
[2017-06-09 21:10] VITALS: BP 153/72; PULSE 84; RESP 16; O2SAT 96
[2017-06-10] MEDS: Sodium Chloride LOK Flush 10 mL Syringe IV SCH ×3 (00:53→16:30)
[2017-06-10] MEDS: HYDROcodone-APAP 7.5-325 mg Tablet PO PRN ×5 (01:04→18:48)
[2017-06-10 01:10] VITALS: BP 138/74; PULSE 89; RESP 18; O2SAT 93
--- NOTE | 2017-06-10 04:51 | NUR ---
MOBILITY/PAIN/BM Patient states second round of PT increased pain today, prefers not to turn on side and prefers bedpan to void. Pain well controlled with pain medications administered x1 this shift. Patient states last BM was Wednesday, stool softeners administered as scheduled, bowel tones active, denies abdominal pain, able to pass gas. Will continue to monitor.
[2017-06-10 05:15] VITALS: BP 132/67; PULSE 93; RESP 20; O2SAT 94
[2017-06-10 06:21] LABS: BASOPHILS % (AUTO) 0.1 % (0-3); EOSINOPHILS % (AUTO) 0 % (0-5); MONOCYTES % (AUTO) 13.7 % (4-12); Mean Corpuscular Hemoglobin 31.1 pg (27.0-35.0); Mean Corpuscular Volume 95.5 fL (81-100); Platelet Count 239 bil/L (150-400)
[2017-06-10] MEDS: Senna-Docusate 8.6-50 mg Tablet PO SCH ×2 (10:11→20:54)
--- NOTE | 2017-06-10 10:26 | PCM.PNMED ---
Subjective Date of Service Jun 10, 2017 Subjective Denies any new issues/complaints Exam Vital Signs Vital Sign - Last Date Time Temp Pulse Resp B/P Pulse Ox O2 Delivery O2 Flow Rate FiO2 06/10/17 05:15 36.4 93 20 132/67 94 Room Air 06/09/17 05:32 2.00 Intake and Output 06/09/17 06/09/17 06/10/17 Cumulative From/Thru 15:00 23:00 07:00 06/07/17 12:43 - 06/10/17 04:16 Intake Total 1004 ml 5855 ml Output Total 1450 ml 4166 ml Balance -446 ml 1689 ml Intake Oral 640 ml 1560 ml IV Total 364 ml 4295 ml Output Urine Total 1450 ml 3526 ml Emesis 440 ml Estimated Blood Loss 200 ml # Bowel Movements 0 0 Exam General: Alert, Cooperative, No Acute Distress Head: Normal Eyes: Scleral Anicteric Nose: Mucous Membr Moist/[place] Mouth: Mucous Membr Moist/[place] Neck: Supple Chest & Lungs: Chest Wall Normal, Clear to auscultation bilat Cardiovascular: Regular Rate/Rhythm Abdomen: Non-tender, Non-distended, Normoactive bowel tones, Soft Extremities: No cyanosis/clubbing/edema bilat Neurological: Grossly Neurologically Intact, Normal Speech IVs and Medications Medications Reviewed: Medications were reviewed in detail Lab and Diagnostics Result Diagram: 06/10/1740 06/10/17 0540 X-Rays, CTs and MRIs 06/07/17- X-RAY LEFT FEMUR, TWO VIEWS IMPRESSION: 1. Mildly impacted left femoral neck fracture redemonstrated. 2. Limited evaluation of the distal femur demonstrates no definite fracture. Assessment & Plan 72 yo [place] female h/o of GERD, HTN, HLD presented to ED after ground level fall with pain in Left Hip found on X-Ray to have mildly impacted left femoral neck fracture. # Acute Left displaced femoral neck fracture, present on admission - Post Left total hip arthroplasty on 06/08/17 - Appreciate Ortho consult. Will followup with recs - Continue with supportive care including IV Dilaudid prn for pain - Continue with post-op PT per ortho recs # Acute Ground Level Fall, present on admission. - Appears mechanical fall. No preceding syncopal symptoms. - Chronic hypertension. Stable. - Continue with home medications # Chronic GERD, stable. - Maalox prn # History of arthritis. Stable - Continue with supportive care Dispo: 1-2 days. ? SNF VTE Prophylaxis: Sub-Q Enoxaparin, SCDs VTE Mechanical Devices: Intermittant Pneumatic CD Resuscitation Status: CPR: Attempt Resuscitation Ramin Winkler Jun 10, 2017 10:26
--- NOTE | 2017-06-10 11:30 | PCM.PNORTH ---
Subjective Date of Service: Jun 10, 2017 Visit Information: Reason for Visit Lt Femoral Neck Fx Surgery/Surgery Date Post-Op Day # Date of Admission: Jun 07, 2017 at 14:41 Hospital Day # Subjective Status post day #2 left total hip arthroplasty. Patient is doing very well, states her pain is well-controlled and she is moving much better with physical therapy today. Optimistic about going home today if possible, she does have 3 stairs to navigate before she is able to do this. Postop General: No Shortness of Breath, No Chest Pain, Good Appetite Pain Management: PO, IV Push Objective Exam Objective Patient is alert and oriented 3. Answering questions appropriately. Patient is sitting up in the bed side chair and not in acute distress today. Dressing is clean dry and intact. Calf is soft and nontender. Sensation and pulses intact, patient able to wiggle toes. Vital Signs and I/O Vital Sign - Last Date Time Temp Pulse Resp B/P Pulse Ox O2 Delivery O2 Flow Rate FiO2 06/10/17 10:39 Room Air 06/10/17 05:15 36.4 93 20 132/67 94 06/09/17 05:32 2.00 Intake and Output 06/09/17 06/09/17 06/10/17 Cumulative From/Thru 14:59 22:59 06:59 06/07/17 12:43 - 06/10/17 04:16 Intake Total 1004 ml 5855 ml Output Total 1450 ml 4166 ml Balance -446 ml 1689 ml Intake Oral 640 ml 1560 ml IV Total 364 ml 4295 ml Output Urine Total 1450 ml 3526 ml Emesis 440 ml Estimated Blood Loss 200 ml # Bowel Movements 0 0 Lab & Micro Results Laboratory Tests Test 06/10/17 05:40 White Blood Count 8.3th/mm3 (3.8-10.1) Red Blood Count 3.54mil/mm3 (3.90-5.20) Hemoglobin 11.0g/dL (12.0-15.6) Hematocrit 33.8% (35.0-46.0) Mean Corpuscular Volume 95.5fL (81-100) Mean Corpuscular Hemoglobin 31.1pg (27.0-35.0) Mean Corpuscular Hemoglobin Concent 32.5% (32.0-37.0) Red Cell Distribution Width 12.6% (12.3-15.4) Platelet Count 239bil/L (150-400) Neutrophils (%) (Auto) 69.0% (40-74) Lymphocytes (%) (Auto) 17.0% (14-46) Monocytes (%) (Auto) 13.7% (4-12) Eosinophils (%) (Auto) 0% (0-5) Basophils (%) (Auto) 0.1% (0-3) Sodium Level 138mEq/L (134-144) Potassium Level 3.6mEq/L (3.5-5.2) Chloride Level 101mEq/L (97-108) Carbon Dioxide Level 25mmol/L (18-29) Blood Urea Nitrogen 10mg/dL (8-27) Creatinine 0.56mg/dL (0.57-1.00) Estimat Glomerular Filtration Rate 152mL/min (>59) Glucose Level 108mg/dL (60-99) Calcium Level 8.2mg/dL (8.5-10.1) Result Diagram: 06/10/17 0540 06/10/17539 Activity: Activity per PT Catheters: Urethral 2 Way Gould Assessment & Plan Impression Status post day #2 left total hip arthroplasty from hip fracture. Patient doing well and would like to go home today if possible and okay with physical therapy. Problems: Plan Weightbearing: Weightbearing as tolerated with walker DVT prophylaxis: Lovenox 40 mg subcutaneous 3 weeks followed by aspirin 325 mg twice a day 3 weeks Physical therapy for transfers, progressive ambulation, therapeutic exercise Wound care: Dressing change performed today. Discharge plan: This afternoon if patient able to accomplish step training, otherwise tomorrow morning. Follow-up plan: In 2 weeks at [facility] with ED for wound check and at [address] Carranza with x-rays VTE Prophylaxis: Sub-Q Enoxaparin, SCDs Resuscitation Status: CPR: Attempt Resuscitation Jonathan Garrison PA-C Jun 10, 2017 11:30
--- NOTE | 2017-06-10 13:55 | NUR ---
Evaluation completed. Please go to "Notes" then click on "Assessments and Notes" (bottom left corner of screen). Then select appropriate discipline tab on top of screen.
[2017-06-10 14:02] VITALS: BP 126/76; PULSE 86; RESP 18; O2SAT 96
--- NOTE | 2017-06-10 19:00 | NUR ---
incision outer dressing changed, Silver dressing moistened, incision looked good, no eythema or oozing
[2017-06-10 20:36] VITALS: BP 115/73; PULSE 124; RESP 18; O2SAT 96
[2017-06-11] MEDS: Sodium Chloride LOK Flush 10 mL Syringe IV SCH ×2 (00:11→08:30)
[2017-06-11] MEDS: HYDROcodone-APAP 7.5-325 mg Tablet PO PRN ×3 (00:16→11:23)
[2017-06-11 00:51] VITALS: PULSE 87
--- NOTE | 2017-06-11 04:36 | NUR ---
Pain/Mobility/BM Patient pain well managed this shift with PRN pain medication. Patient able to get up to BSC several times throughout shift, still has not had BM since 06/07/17, patient states she is not worried about it because she had a very large BM on 06/07/17 and it is "normal" for her to only have 1 BM in a week. Educated patient on risk for constipation while taking narcotics and the availability of other medications to help stimulate a BM. Patient understood but refused Miralax at this time. Scheduled stool softeners administered at beginning of shift.
[2017-06-11 05:44] VITALS: BP 138/74; PULSE 97; RESP 18; O2SAT 97
--- NOTE | 2017-06-11 08:59 | PCM.PNORTH ---
Subjective Date of Service: Jun 11, 2017 Visit Information: Reason for Visit Lt Femoral Neck Fx Surgery/Surgery Date Post-Op Day # 3 Date of Admission: Jun 07, 2017 at 14:41 Hospital Day # Subjective Patient states her pain is well controlled. She states ice helps more than the pain medication as she becomes very nauseated from the pain medicine. She states she worked with therapy yesterday and was able to walk up a couple of stairs. She has compression stockings at home but would like a pair of our thigh high ones as she only has knee high. Postop General: No Shortness of Breath, No Chest Pain, Good Appetite Pain Management: PO, IV Push Objective Exam Objective Patient sitting up in chair Vital Signs and I/O Vital Sign - Last Date Time Temp Pulse Resp B/P Pulse Ox O2 Delivery O2 Flow Rate FiO2 06/11/17 05:44 36.8 97 18 138/74 97 Room Air 06/09/17 05:32 2.00 Intake and Output 06/10/17 06/10/17 06/11/17 Cumulative From/Thru 15:00 23:00 07:00 06/07/17 12:43 - 06/11/17 06:31 Intake Total 1040 ml 500 ml 500 ml 7895 ml Output Total 1200 ml 500 ml 750 ml 6616 ml Balance -160 ml 0 ml -250 ml 1279 ml Intake Oral 1040 ml 500 ml 500 ml 3600 ml IV Total 4295 ml Output Urine Total 1200 ml 500 ml 750 ml 5976 ml Emesis 440 ml Estimated Blood Loss 200 ml # Voids 5 2 7 # Bowel Movements 0 0 0 0 Result Diagram: 06/10/17 0540 06/10/17 0540 General Appearance: Alert, Oriented X3, Cooperative, No Acute Distress Extremities: Distal Pulses Palpable, Warm, No Edema, Cyanotic Postop Sensory Motor: Distal Motor Intact, Movement in Toes, Distal Sensation Intact, NVI Distally SURGICAL WOUND : Wound Location/Description Dressing c/d/i. Silverlon intact beneath. Incision appears to be healing well, no signs of infection. Incision General Appearance: Well Approximated, Incision Healing Dressing & Drainage Status: Intact Activity: Activity per PT Assessment & Plan Impression Status post day #3 left total hip arthroplasty from hip fracture. Patient doing well and would like to go home today if possible and okay with physical therapy. Problems: Plan Weightbearing: Weightbearing as tolerated with walker DVT prophylaxis: Lovenox 40 mg subcutaneous 3 weeks followed by aspirin 325 mg twice a day 3 weeks Physical therapy for transfers, progressive ambulation, therapeutic exercise Wound care: Do not put any creams on incision. May cover if desired, but not required. May shower today if incision is absent of drainage and is dry. Please apply bilateral thigh high compression stockings to patient before she discharges today. Discharge plan: Today after morning PT if cleared by hospitalist and PT. Follow-up plan: In 2 weeks at [facility] with PA for wound check and at [address] Carranza with x-rays VTE Prophylaxis: Sub-Q Enoxaparin, SCDs Resuscitation Status: CPR: Attempt Resuscitation Gracie Laughlin PA-C Jun 11, 2017 08:59
[2017-06-11] MEDS: Senna-Docusate 8.6-50 mg Tablet PO SCH (09:22)
[2017-06-11] MEDS ORDERED: ENOX40DI8 SUBQ (11:18)
[2017-06-11] MEDS ORDERED: ONDA8TAB7 PO (11:18)
[2017-06-11] MEDS ORDERED: DOCU-41 PO (11:18)
[2017-06-11] MEDS ORDERED: OXYC1TAB24 PO (11:18)
--- NOTE | 2017-06-11 11:24 | PCM.DIMED ---
Discharge Instructions Date of Service Jun 11, 2017 Dates of Hospitalization Jun 07, 2017 at 14:41 Discharge Diagnosis Discharge Diagnosis # Acute Left displaced femoral neck fracture, present on admission - Post Left total hip arthroplasty on 06/08/17 # Acute Ground Level Fall, present on admission. - Chronic hypertension. Stable. # Chronic GERD, stable. # History of arthritis. Stable Medication Instructions Additional med instructions DVT prophylaxis: Lovenox 40 mg subcutaneous 3 weeks followed by aspirin 325 mg oral twice a day 3 weeks Diet Discharge Diet: Low fat, Low Sodium, Heart Healthy Activity Discharge Activity: Outpatient Physical Therapy (Outpatient physical therapy for transfers, progressive ambulation, therapeutic exercise) Call your provider Call your provider for: Fever or Chills, Shortness of breath, Bleeding, Chest pain Patient Instructions Patient Instructions Seek immediate medical attention if any new or worsening signs or symptoms occur. Weightbearing as tolerated with walker Do not put any creams on incision. May cover if desired, but not required. May shower today if incision is absent of drainage and is dry. Follow-up plan 1. Follow-up plan: In 2 weeks at [facility] with PA for wound check and at [address] Carranza with x-rays [address] [id number] 2. Followup with primary care provider in about one week Follow-up Provider: Marky Carranza DO Provider: La Crocker Masoud Jun 11, 2017 11:24
[2017-06-11] MEDS ORDERED: ASPI325T32 PO (11:26)
--- NOTE | 2017-06-11 11:30 | PCM.DC.MED ---
Discharge Summary Date of Service Jun 11, 2017 Dates of Hospitalization Date of Hospital Admission Jun 07, 2017 at 14:41 Date of Discharge: Jun 11, 2017 Providers: Admitting Physician: Edwin Pham MD Primary Care Physician: La Crocker Attending Physician: Ramin Caro Diagnosis at Time of Discharge Diagnosis at Time of Discharge # Acute Left displaced femoral neck fracture, present on admission - Post Left total hip arthroplasty on 06/08/17 # Acute Ground Level Fall, present on admission. - Chronic hypertension. Stable. # Chronic GERD, stable. # History of arthritis. Stable Consultations 1. Ortho (Dr. Carranza) Procedures XRay, CTs & MRIs Date of Service: 06/07/17 1238 PROCEDURE: X-RAY PELVIS W/LAT HIP (LT) ([id number]) IMPRESSION: 1. Mildly impacted left femoral neck fracture. Dictated by: Tom Balderas M.D. on 06/07/2017 at 13:50 Approved by: Tom Balderas M.D. on 06/07/2017 at 13:51 Date of Service: 06/08/17 1859 PROCEDURE: X-RAY PELVIS W/LAT HIP (LT) ([id number]) IMPRESSION: Left total hip arthroplasty. Dictated by: Samm Phelps M.D. on 06/08/2017 at 19:58 Approved by: Samm Phelps M.D. on 06/08/2017 at 19:58 Invasive Procedures DATE OF SURGERY: 06/08/2017 SURGEON: Marky Carranza DO PREOPERATIVE DIAGNOSIS(ES): Left displaced femoral neck fracture. POSTOPERATIVE DIAGNOSIS(ES): Left displaced femoral neck fracture. PROCEDURE: Left total hip arthroplasty. ANESTHESIA: General. BLOOD LOSS: 200 cc. POSTOPERATIVE PROTOCOL: Have the patient weightbear to tolerance. Use a walker for ambulation. Will use Lovenox for DVT prophylaxis. Follow up in the clinic with PA for wound check in two weeks and with myself in six weeks with x-rays. Marky Carranza DO 06/08/17 [id number] <Electronically signed by Marky Carranza DO> 06/09/17 1508 Brief History As noted in H&P by Dr. Pham: 72 yo pleasant female h/o of GERD, HTN, HLD, Arthritis presented to ED after ground level fall with pain. Pt says she tripped after missing a step and fell. Her tried to help her up but was too painful. Called EMS to transport her to ED. Pt denies lightheadedness before fall. Pain is 10/10. Denies hitting her head. No LOC, loss of urine. Denies fever/chills. Denies CP. Not on any blood thinners. Hospital Course # Acute Left displaced femoral neck fracture, present on admission - Post Left total hip arthroplasty on 06/08/17 - Appreciate Ortho consult. - Continue with post-op PT per ortho recs - Cleared for d/c home by Ortho and PT on 06/11/17 # Acute Ground Level Fall, present on admission. - Appears mechanical fall. No preceding syncopal symptoms. - Chronic hypertension. Stable. - Continued with home medications # Chronic GERD, stable. - Maalox prn # History of arthritis. Stable - Continued with supportive care by day of discharge denies any new issues/complaints. Eager to go home Exam Vital Signs (Last) Date Time Temp Pulse Resp B/P Pulse Ox O2 Delivery O2 Flow Rate FiO2 06/11/17 10:54 Room Air 06/11/17 05:44 36.8 97 18 138/74 97 06/09/17 05:32 2.00 Exam Lungs: CTA bilat CV: RRR Test 06/07/17 14:35 06/08/17 06:05 06/08/17 19:20 06/10/17 05:40 Hold Purple Top Tube Received (Received) Hold Blue Top Tube Received (Received) Hold Red Top Tube Received (Received) Hold Seiling Top Tube Received (Received) Hold Cox Top Tube Received (Received) Prothrombin Time 9.8sec (8.1-12.5) Prothromb Time International Ratio 0.92ratio Total Bilirubin 0.6mg/dL (0.0-1.2) Aspartate Amino Transf (AST/SGOT) 20U/L (0-50) Alanine Aminotransferase (ALT/SGPT) 13U/L (0-32) Alkaline Phosphatase 84U/L (25-165) Total Protein 5.7g/dL (6.4-8.4) Albumin 3.7g/dL (3.4-5.0) Urine Color Yellow (YELLOW) Urine Appearance Hazy (CLEAR,HAZY) Urine pH 6.0 (5.0-8.0) Urine Specific Zullinger 1.030 (1.003-1.035) Urine Protein Negativemg/dL (NEG,TRACE) Urine Glucose (UA) Negativemg/dL (NEGATIVE) Urine Ketones 80mg/dL (NEGATIVE) Urine Occult Blood Small (NEGATIVE) Urine Nitrite Negative (NEGATIVE) Urine Bilirubin Negative (NEGATIVE) Urine Urobilinogen Normalmg/dL (NORMAL) Urine Leukocyte Esterase Negative (NEGATIVE) Urine RBC 0-2/hpf (0-2) Urine WBC 0-5/hpf (0-5) Urine Epithelial Cells None/hpf (NONE-MOD) Urine Crystals None seen (NONE SEEN) Urine Bacteria Few/hpf (NONE-FEW) Urine Hyaline Casts None/lpf (NONE) Urine Granular Casts None seen (NONE SEEN) Urine Waxy Casts None seen (NONE SEEN) Urine Red Blood Cell Casts None seen (NONE SEEN) Urine White Blood Cell Casts None seen (NONE SEEN) Urine Mucus None seen (None Seen) Urine Trichomonas None seen (NONE SEEN) Urine Yeast None (NONE SEEN) Urinalysis Comment None Urine Culture Reflexed Not indicated White Blood Count 8.3th/mm3 (3.8-10.1) Red Blood Count 3.54mil/mm3 (3.90-5.20) Hemoglobin 11.0g/dL (12.0-15.6) Hematocrit 33.8% (35.0-46.0) Mean Corpuscular Volume 95.5fL (81-100) Mean Corpuscular Hemoglobin 31.1pg (27.0-35.0) Mean Corpuscular Hemoglobin Concent 32.5% (32.0-37.0) Red Cell Distribution Width 12.6% (12.3-15.4) Platelet Count 239bil/L (150-400) Neutrophils (%) (Auto) 69.0% (40-74) Lymphocytes (%) (Auto) 17.0% (14-46) Monocytes (%) (Auto) 13.7% (4-12) Eosinophils (%) (Auto) 0% (0-5) Basophils (%) (Auto) 0.1% (0-3) Sodium Level 138mEq/L (134-144) Potassium Level 3.6mEq/L (3.5-5.2) Chloride Level 101mEq/L (97-108) Carbon Dioxide Level 25mmol/L (18-29) Blood Urea Nitrogen 10mg/dL (8-27) Creatinine 0.56mg/dL (0.57-1.00) Estimat Glomerular Filtration Rate 152mL/min (>59) Glucose Level 108mg/dL (60-99) Calcium Level 8.2mg/dL (8.5-10.1) Discharge Medications Discharge Medications Aspirin (Aspirin) 325 Mg Tablet 325 MG PO BID Start taking in 19 days (after finishing the course of Lovenox treatment). One tablet twice daily for 3 weeks Prescribed by: RAMIN CARO MD Atorvastatin Calcium (Atorvastatin Calcium) 20 Mg Tablet 10 MG PO HS (Reported) Docusate Sodium (Colace) 100 Mg Capsule 100 MG PO BID Prescribed by: RAMIN CARO MD Enoxaparin Sodium (Enoxaparin Sodium) 40 Mg/0.4 Ml Syringe 40 MG SUBQ Q24 Prescribed by: RAMIN CARO MD Lisinopril (Lisinopril) 5 Mg Tablet 5 MG PO DAILY (Reported) Ranitidine (Zantac) 150 Mg Tablet 150 MG PO DAILY (Reported) As needed Ondansetron ODT (Zofran ODT) 8 Mg Tablet 8 MG PO Q8H PRN PRN For Nausea Prescribed by: RAMIN CARO MD oxyCODONE-Acetaminophen 5-325 mg (oxyCODONE-Acetaminophen 5-325 mg) 1 Each Tablet 1-2 TAB PO Q6H PRN PRN For Pain Prescribed by: RAMIN CARO MD Additional med instructions DVT prophylaxis: Lovenox 40 mg subcutaneous 3 weeks followed by aspirin 325 mg oral twice a day 3 weeks Followup Plan Disposition: Home Follow-up plan 1. Follow-up plan: In 2 weeks at [facility] with PA for wound check and at [address] Carranza with x-rays [address] [id number] 2. Followup with primary care provider in about one week Discharge Diet: Low fat, Low Sodium, Heart Healthy Discharge Activity: Outpatient Physical Therapy (Outpatient physical therapy for transfers, progressive ambulation, therapeutic exercise) Patient Instructions Seek immediate medical attention if any new or worsening signs or symptoms occur. Weightbearing as tolerated with walker Do not put any creams on incision. May cover if desired, but not required. May shower today if incision is absent of drainage and is dry. Follow-up Provider: Marky Carranza DO Provider: La Crocker Time spent 30 min copies to: La Crocker; Marky Carranza Masoud Jun 11, 2017 11:30
[2017-06-11 13:15] VITALS: BP 101/68; PULSE 137; RESP 18; O2SAT 94
[2017-06-11] MEDS ORDERED: MeTOProlol 1 mg/mL 5 mL Inj IVPUSH ONE (13:35)
[2017-06-11 14:35] VITALS: BP 105/70; PULSE 88
--- NOTE | 2017-06-11 14:56 | NUR ---
Discharge 13:15, HR elevated. Asymptomatic, states she feels "fine." Rechecked VS and paged . Orders received for metoprolol, but when I returned, HR had come down to 88. Per order, pt discharged to home via private vehicle with at 14:00. States she feels "good" and is ready to go home. IV discontinued intact. All belongings sent with pt. Pt and express understanding of all discharge instructions and carenotes, including followup and meds. Rx given. Pt had demonstrated Sub Q injection.
--- NOTE | 2017-06-11 15:52 | NUR ---
Social Work Note: Discharge Data& Assessment: Per MD in multidisciplinary rounds, pt is medically ready to discharge. Mayte Anthony is a 72 year old female admitted on 06/07/2017 for LT Femoral Neck fx. Per MD pt is medically improved and ready for discharge. MD does not identify any concerns for pt capacity for self care and discharging pt home. PT cleared pt to return home with outpt PT and continued use of her FWW. OT was recommending SNF, but pt does not meet criteria for SNF at this time. Pt family supportive and obtaining equipment recommended by OT for easier completion of ADL's at home for pt. Pt ambulating to BSC and in room per RN Activity documentation. No other discharge needs or MD orders identified. Plan: Per pt is medially ready to discharge Home via POV with family support. No other discharge needs or MD orders identified. HOLLAND Millard
== END 2017-06-11 14:06 | disposition home or self-care (01) | DRG 470 ==
LOC: SED 12:31 → OSC 14:41
PROVIDERS: ADMIT Internal Medicine; ATTEND Internal Medicine
PROC: 0SRB04A Replacement of Left Hip Joint with Ceramic on Polyethylene Synthetic Substitute, Uncemented, Open Approach (ICD-10-PCS; principal; 2017-06-08 16:45)
DX: S72.012A Unspecified intracapsular fracture of left femur, initial encounter for closed fracture (principal); W01.0XXA Fall on same level from slipping, tripping and stumbling without subsequent striking against object, initial encounter; I10 Essential (primary) hypertension; E78.5 Hyperlipidemia, unspecified; K21.9 Gastro-esophageal reflux disease without esophagitis